=== PATIENT | male | born 1985 | race Caucasian/White ===

== ENCOUNTER 2016-08-21 15:49 | Emergency (ER) | payer SELFPAY ==
[~2016-08-21] VITALS: Ht 190.5 cm; Wt 109.1 kg
[~2016-08-21 15:49] MED LIST: LORTAB 5/500 501 TAB PO; NAPROSYN500 MG PO; VYVANSE20 MG PO
[2016-08-21 15:52] VITALS: BP 142/96; PULSE 75; TEMP 98.2
== END 2016-08-21 17:16 | disposition home or self-care (01) ==
LOC: COL.ER 15:49
DX: H60.02 Abscess of left external ear (principal)